=== PATIENT | male | born 1970 | race Caucasian/White ===

== ENCOUNTER 2019-06-21 09:30 | Emergency (ER) | payer OTHER ==
[~2019-06-21] VITALS: Ht 190.5 cm; Wt 106.6 kg
[~2019-06-21 09:30] MED LIST: Keflex500 MG PO
== END 2019-06-21 09:55 | disposition home or self-care (01) ==
LOC: ER 09:30
DX: S71.112D Laceration without foreign body, left thigh, subsequent encounter (principal); F17.200 Nicotine dependence, unspecified, uncomplicated